=== PATIENT | female | born 1955 | race Caucasian/White ===

== ENCOUNTER 2024-09-11 14:52 | Emergency (ER) | payer MEDICARE, SELFPAY ==
[2024-09-11 15:06] VITALS: BP 155/87; PULSE 102; RESP 18; TEMP 36.1; O2SAT 100
--- NOTE | 2024-09-11 15:14 | ED_ITS ---
HPI - Female Genitourinary General Chief complaint: Urogenital-Female Stated complaint: UTI Time Seen by Provider: 09/11/24 15:14 Source: patient Mode of arrival: ambulatory Limitations: no limitations History of Present Illness HPI Narrative: 68-year-old female presents with complaint of urinary frequency, urgency, dysuria, decreased output since this morning. Afebrile. Denies nausea vomiting. No abdominal or back pain. Patient reports history of frequent UTIs but has not had 1 in the past 1 or 2 years. All systems reviewed and negative except as noted above. Related Data Allergies Allergy/AdvReac Type Severity Reaction Status Date / Time Sulfa (Sulfonamide Allergy Unknown Unknown Verified 09/11/24 15:09 Antibiotics) Review of Systems Review of Systems: CONSTITUTIONAL: Denies fever, chills, or sweats. EYES: Denies visual changes, redness, or discharge. ENT: Denies rhinorrhea, congestion, sore throat, or otalgia. CARDIOVASCULAR: Denies chest pain, palpitations, or edema. RESPIRATORY: Denies cough or dyspnea. GASTROINTESTINAL: Denies abdominal pain, nausea, vomiting, or diarrhea. GENITOURINARY: Reports dysuria, frequency, urgency. Denies hematuria. SKIN: Denies rash or itching. MUSCULOSKELETAL: Denies back pain, joint pain, or myalgia. NEUROLOGIC: Denies headache, numbness, or weakness. PSYCHIATRIC: Denies anxiety or depression. All other systems reviewed are negative, except as documented in HPI. [facility] Past Medical History Medical History Choledocholithiasis Colon cancer screening Muscle strain Seborrheic keratosis Surgical History Surgical History Hx of cholecystectomy Family History Family History Father Patient's father is Sibling Carcinoma of colon Family history of lung cancer Mother Hypertension Social History Social History Social History: patient declined [facility] 06/28/24 Years smoked: 10 Smoking status: Former smoker Alcohol intake: current Alcohol use details: social Substance use: unknown Do You Feel Safe in your Home?: Yes Lack of Transportation: No Lack of Food: Never True Current Housing: I Have Housing Concerned About Future Housing: No Difficulty Paying Gas/Electric Bills: No Difficulty Paying for Meds: No Currently Unemployed: No Education: Don't Know Difficulty w/ Childcare or Family Care: No Living arrangements: with family Occupation/Education: occupation Additional occupation/education comments: target Gender identity (if verbalized by the patient): Female Spiritual care concerns: No Comments At time of signature, agree with nursing past medical, surgical, social and family history. There is no relevant family history pertinent to the presenting complaint. Exam Narrative: GENERAL: This is a well-nourished, well-developed patient, in no apparent distress. HEAD: normocephalic, atraumatic. EYES: PERRL. Sclera clear/white. Vision is grossly intact. EARS: External ears normal NOSE: External nose normal NECK: Neck supple, non-tender without lymphadenopathy, masses or thyromegaly. CARDIOVASCULAR: Regular rate and rhythm without murmurs, gallops, or rubs. RESPIRATORY: Clear to auscultation. Breath sounds equal bilaterally. No wheezes, rales, or rhonchi. SKIN: warm, Dry, intact with no suspicious lesions or rash, good texture and turgor. NEURO: awake, alert, and oriented to person, place and time. There were no obvious focal neurologic abnormalities. EXTREMITIES: No joint tenderness, effusion, or edema noted. Course Course Level of Care: Express Care Visit Vital Signs Vital signs: Vital Signs Temperature 36.1 C L 09/11/24 15:06 Pulse Rate 102 H 09/11/24 15:06 Respiratory Rate 18 09/11/24 15:06 Blood Pressure 155/87 H 09/11/24 15:06 Pulse Oximetry 100 09/11/24 15:06 Oxygen Delivery Room Air 09/11/24 15:06 Temperature 36.1 C L 09/11/24 15:06 Pulse Rate 102 H 09/11/24 15:06 Respiratory Rate 18 09/11/24 15:06 Blood Pressure 155/87 H 09/11/24 15:06 Pulse Oximetry 100 09/11/24 15:06 Oxygen Delivery Room Air 09/11/24 15:06 reviewed MDM - Female Genitourinary MDM Narrative Medical decision making narrative: urinalysis 1+ blood, 1+ leukocytes. Urine culture ordered. Will treat patient with antibiotic due to urinary symptoms. Patient nontoxic. Patient is aware of diagnosis, understands and agrees to treatment plan. Anticipatory guidance given. Patient agrees to follow-up as directed and is aware of reasons to seek care at the emergency department. Portions of this record may have been created with voice recognition software Discharge Plan Discharge Clinical Impression: Urinary tract infection Patient Disposition: Home, Self-Care Condition: Stable Instructions: Antibiotic Form, Urinary Tract Infection in Women (DC) Additional Instructions: take medications as prescribed. Drink at least 64 oz of water a day. Follow-up with your primary care physician if symptoms are not improving. If you have severe pain, vomiting, fever go to the ER. Prescriptions: New phenazopyridine [Pyridium] 200 mg tablet 200 mg PO TID PRN (Reason: pain) 3 Days Qty: 10 0RF ciprofloxacin HCl 500 mg tablet 500 mg PO BID 7 Days Qty: 14 0RF No Action rosuvastatin 5 mg tablet 5 mg PO .HS Qty: 90 0RF amlodipine-benazepril 5-10 mg capsule See Rx Instructions .ROUTE .COMPLEX Qty: 90 1RF Dose Instruction: Take 1 capsule by mouth once daily Rx Instructions: Take 1 capsule by mouth once daily levothyroxine 75 mcg tablet See Rx Instructions .ROUTE .COMPLEX Qty: 90 1RF Dose Instruction: Take 1 tablet by mouth once daily Rx Instructions: Take 1 tablet by mouth once daily cholecalciferol (vitamin D3) 1,250 mcg (50,000 unit) capsule See Rx Instructions .ROUTE .COMPLEX Qty: 14 0RF Dose Instruction: Take 1 capsule by mouth once a week Rx Instructions: Take 1 capsule by mouth once a week Follow-up/Referrals: Lydia Starr, CLIENT SERVICES COORDINATOR-C [Primary Care Provider] - Time of Disposition: 15:20
[2024-09-11 15:15] LABS: EDUAAPPEAR Clear; EDUABILI Negative (Negative); EDUABLOOD 1+ (Negative); EDUACOLOR1 Light/Pale; EDUAGLUCOSE Negative (Negative); EDUAKETONE Negative (Negative); EDUALEUKO 1+ (Negative); EDUANITRATE Negative (Negative); EDUAPROTEIN Negative (Negative); EDUASPGRAVITY 1.015; EDUAUROBILI 0.2
== END 2024-09-11 15:26 | disposition home or self-care (01) ==
PROVIDERS: Emergency Provider Nurse Practitioner Family; PCP Nurse Practitioner Family
DX: N39.0 Urinary tract infection, site not specified (principal); Z87.891 Personal history of nicotine dependence
CPT/HCPCS: 81003; 87086; 99213; G0463